=== PATIENT | female | born 1955 | race Caucasian/White ===

== ENCOUNTER 2020-03-11 21:05 | Inpatient (IN) | payer BC ==
[~2020-03-11] VITALS: Ht 160 cm; Wt 77.6 kg
[2020-03-11 21:14] VITALS: Ht 160 cm; Wt 77.6 kg
[2020-03-11 21:57] LABS: BASOPHIL % 0.3 % (0-2); PLATELET COUNT 221 x10^3mcL (130-400); RED CELL DISTRIBUTION WIDTH 13.8 % (11.5-14.5)
[2020-03-11 22:19] LABS: CALCIUM 9.3 mg/dL (8.5-10.1); CARBON DIOXIDE 27.8 mmol/L (21-32); POTASSIUM SERUM 3.4 mmol/L (3.5-5.1)
[2020-03-11 22:20] LABS: ALBUMIN 3.6 g/dL (3.4-5.0); BILIRUBIN TOTAL 0.3 mg/dL (0.20-1.00); TOTAL PROTEIN, SERUM 7.3 g/dL (6.4-8.2)
[2020-03-12 00:47] LABS: microscopic required? YES; urine erythrocyte 3+ (NEGATIVE)
[2020-03-12] MEDS ORDERED: AZOR 10-20 MG1 EACH PO (00:50)
[2020-03-12 01:37] LABS: CHOLESTEROL/HDL RATIO 3.7; PHOSPHOROUS 3.7 mg/dL (2.5-4.9)
[2020-03-12 02:31] VITALS: BP 123/64
[2020-03-12 05:40] VITALS: BP 113/53
[2020-03-12 07:23] LABS: CALCIUM 8.9 mg/dL (8.5-10.1); CARBON DIOXIDE 22.8 mmol/L (21-32); CHLORIDE SERUM 108 mmol/L (98-107); CREATININE SERUM 0.7 mg/dL (0.6-1.0); GFR1 > 60 mL/min; GLUCOSE SERUM 90 mg/dL (74-106); MAGNESIUM 1.9 mg/dL (1.8-2.4); PHOSPHOROUS 3.3 mg/dL (2.5-4.9); POTASSIUM SERUM 3.5 mmol/L (3.5-5.1); SODIUM SERUM 142 mmol/L (136-145)
[2020-03-12 07:33] LABS: T3 TOTAL 0.91 ng/mL
[2020-03-12 08:05] VITALS: BP 122/65
[2020-03-12 08:16] LABS: BASOPHIL % 0.7 % (0-2); PLATELET COUNT 203 x10^3mcL (130-400); RED CELL DISTRIBUTION WIDTH 13.4 % (11.5-14.5)
[2020-03-12 08:32] LABS: FREE T4 0.97 ng/dL (0.76-1.46); FREE THYROXINE INDEX 2.4 ug/dL (1.4-4.5); T4(THYROXINE) 6.6 ug/dL (4.7-13.3)
[2020-03-12] MEDS ORDERED: FLO4 PO (09:09)
[2020-03-12] MEDS ORDERED: COL100 PO (09:12)
[2020-03-12] MEDS ORDERED: TYL325 PO (09:17)
[2020-03-12 13:22] VITALS: BP 122/65
[2020-03-12] MEDS ORDERED: CIPRO500 MG PO (13:56)
== END 2020-03-12 14:03 | disposition home or self-care (01) | DRG 694 ==
LOC: ED 21:05 → DU 23:27 → MU 23:27 → DU 03-12 01:28 → MU 03-12 01:32
PROVIDERS: Emergency Medicine; ADMIT Student in an Organized Health Care Education/Training Program; ATTEND Student in an Organized Health Care Education/Training Program
DX: N13.2 Hydronephrosis with renal and ureteral calculous obstruction (principal); N17.0 Acute kidney failure with tubular necrosis; I10 Essential (primary) hypertension; J45.909 Unspecified asthma, uncomplicated; E87.6 Hypokalemia; E78.5 Hyperlipidemia, unspecified; K57.30 Diverticulosis of large intestine without perforation or abscess without bleeding; Z88.5 Allergy status to narcotic agent; Z87.440 Personal history of urinary (tract) infections; Z79.899 Other long term (current) drug therapy
CPT/HCPCS: 83880; 84439; G0378; J1644; J1885; J2543; J7030; Q0092